=== PATIENT | female | born 1950 | race Two or more races ===

== ENCOUNTER 2023-02-25 06:35 | Day surgery (SDC) | payer OTHER ==
[~2023-02-25 06:35] MED LIST: COZAAR50 MG PO; LIPITOR40 M1 PO; LYRICA50 MG PO; METFOR PO; PEPCID AC20 MG PO; ZESTRIL20 MG PO
== END 2023-02-25 16:25 | disposition home or self-care (01) ==
LOC: CIR.AMB 06:35
PROVIDERS: ATTEND Surgery Surgery of the Hand
DX: M67.844 Other specified disorders of tendon, left hand (principal); I10 Essential (primary) hypertension; E11.9 Type 2 diabetes mellitus without complications; Z79.84 Long term (current) use of oral hypoglycemic drugs